=== PATIENT | female | born 1995 | race American Indian/Alaskan Native ===

== ENCOUNTER 2017-12-26 16:26 | Emergency (ER) | payer OTHER ==
[2017-12-26 16:33] VITALS: BP 131/96
--- NOTE | 2017-12-26 17:58 | Emergency Department Report ---
HPI - General Chief Complaint: Upper Respiratory Infection Time Seen by Provider: 12/26/17 17:58 - HPI HPI: Patient report body aches cough and stuffy nose and decreased appetite that started on Thursday which was 5 days ago. Patient says she has history of sinus infection and she was on amoxicillin and 2 weeks ago for sinus infection which did not clear up. She denies any fever or chills. Denies any nausea or vomiting. Last menstrual period 12/17/2017. She has a history of asthma and denies any wheezing. She says she coughs but only when she lays and it's worse at night. She says she's been taking [id number] cold and cough after she completed her antibiotic without any help. Denies any shortness of breath or chest pain. Pain is 5 on the 10 generalized aching in ED Past Medical Hx - Past Medical History Previous Medical History?: Yes Hx Asthma: Yes - Surgical History Past Surgical History?: No - Family History Family history: no significant - Social History Smoking Status: Never Smoker Substance Use Type: None - Medications Home Medications: Home Medications Medication Instructions Recorded Confirmed Last Taken Type Amoxicillin/K Clav Tab [Augmentin 1 tab PO Q12HR 10 Days #20 tab 12/26/17 Unknown Rx 875 mg] Cetirizine HCl [ZyrTEC] 10 mg PO QAM 14 Days #14 capsule 12/26/17 Unknown Rx Fluticasone [Flonase] 1 spray NS QDAY 14 Days #1 bottle 12/26/17 Unknown Rx guaiFENesin/CODEINE [Robitussin AC] 10 ml PO QHS PRN #10 ml 12/26/17 Unknown Rx ED Review of Systems ROS: Stated complaint: FLU LIKE SYMPTOMS Other details as noted in HPI Comment: All other systems reviewed and negative Constitutional: no symptoms reported Eyes: denies: eye pain, eye discharge ENT: congestion. denies: ear pain, throat pain Respiratory: cough. denies: shortness of breath, SOB with exertion, SOB at rest , stridor, wheezing Cardiovascular: denies: chest pain, palpitations, dyspnea on exertion, edema, syncope, paroxysmal nocturnal dyspnea Gastrointestinal: denies: abdominal pain, nausea, vomiting, diarrhea, constipation Genitourinary: denies: dysuria, hematuria Musculoskeletal: denies: back pain, joint swelling, arthralgia Skin: denies: rash Neurological: denies: headache Physical Exam - Physical Exam Vital Signs: Vital Signs 12/26/17 16:31 Temperature 98.4 F Pulse Rate 90 Respiratory 16 Rate Blood Pressure 131/96 O2 Sat by Pulse 98 Oximetry General: This is 22-year-old female well-nourished well-developed in no acute distress Physical Exam: Head: Normocephalic atraumatic Ears:BIateral TM congested without erythema and loss of bony landmarks. Mohamud EAC with normal exam. No mastoid bone tenderness. Mouth: Moist, no pharyngeal erythema or exudate . No tonsillar erythema or exudate. UVULA midline and oral airways patent. No peritonsillar abscess Neck: Nontender to palpate, supple, normal range of motion. No adenopathy. No c- spine tenderness. Nose: Bilateral nasal mucosa congested with clear drainage. Maxillary and frontal sinuses non-tender to palpate. Eyes: Bilateral Sclerae and conjunctiva without injection. Bilateral pupils equal and reactive to light. Bilateral lids are normal. Normal accommodation.BEOMI Extremity: No Clubbing, cyanosis or edema. +2 pulses all extremities and no neurovascular compromise Abdomen: Soft ,nontender to palpation in all quadrants. Normal bowel sounds. Lungs: Clear to auscultate bilaterally, no rhonchi wheezes or rales. Normal work of breathing and no chest wall tenderness. CV: S1, S2. Regular rate and regular rhythm ,negative murmur. Capillary refill is less than 3 seconds Skin: Clean dry and intact, no rashes or lesions Psych: Normal mood and behavior ED Course Vital Signs 12/26/17 16:31 Temperature 98.4 F Pulse Rate 90 Respiratory 16 Rate Blood Pressure 131/96 O2 Sat by Pulse 98 Oximetry - Reevaluation(s) Reevaluation #1: 12/26/17 19:11 Patient stable throughout ED stay ED Medical Decision Making - Medical Decision Making ED course: His is a 22-year-old female well-nourished well-developed in no acute distress she present with symptoms of sinus infection that appears to be recurrent. Patient was treated 2 weeks ago with amoxicillin and said that it didn't help. She said her symptoms are now worse. Patient with acute sinusitis , cough and body ache. Patient will be treated with Flonase, Zyrtec, Augmentin and guaifenesin with codeine at night. Patient to follow up with her PCP in 3- 5 days Critical care attestation.: If time is entered above; I have spent that time in minutes in the direct care of this critically ill patient, excluding procedure time. ED Disposition Clinical Impression: Cough in adult, Musculoskeletal pain Sinusitis Qualifiers: Sinusitis location: unspecified location Chronicity: acute Recurrence: recurrent Qualified Code(s): J01.91 - Acute recurrent sinusitis, unspecified Disposition: TO HOME OR SELFCARE Is pt being admited?: No Does the pt Need Aspirin: No Condition: Stable Instructions: Musculoskeletal Pain (ED), Acute Cough (ED), Sinusitis (ED) Additional Instructions: Please increase her fluid intake Take medication as prescribed Do not drive or operate heavy machinery while taking cough medicine that this medication causes drowsiness Prescriptions: guaiFENesin/CODEINE [Robitussin AC] 10 ml PO QHS PRN #10 ml PRN Reason: Cough Amoxicillin/K Clav Tab [Augmentin 875 mg] 1 tab PO Q12HR 10 Days #20 tab Cetirizine HCl [ZyrTEC] 10 mg PO QAM 14 Days #14 capsule Fluticasone [Flonase] 1 spray NS QDAY 14 Days #1 bottle Ref[facility]: [facility] [Outside] - 2-3 Days Forms: Work/School Release Form(ED)
== END 2017-12-26 19:23 | disposition home or self-care (01) ==
LOC: ED 16:26
DX: J32.9 Chronic sinusitis, unspecified (principal)
CPT/HCPCS: 99282